=== PATIENT | female | born 1995 | race African-American/Black ===

== ENCOUNTER 2018-05-02 23:36 | Emergency (ER) | payer SELFPAY ==
[~2018-05-02] VITALS: Ht 160 cm; Wt 72.6 kg
--- NOTE | 2018-05-02 23:58 | PHYS DOC ---
Past Medical History Past Medical History: No Pertinent History Past Surgical History: No Surgical History Alcohol Use: Occasionally Drug Use: None Adult General Chief Complaint Chief Complaint: VAGINAL BLEEDING HPI HPI Patient is a 23 year old F who presents with vaginal bleeding in . Patient just found out she was this week. LMP mid march. She reports she started spotting earlier today, but the bleeding became heavier this evening. She denies heavy bleeding at this time. . She will see Dr. Cespedes for her OB care. Review of Systems Review of Systems Constitutional: Denies fever or chills [] GI: Denies abdominal pain, nausea, vomiting : Reports mild vaginal bleeding in . Denies dysuria or hematuria [] Musculoskeletal: Denies back pain or joint pain [] Integument: Denies rash or skin lesions [] Neurologic: Denies headache, focal weakness or sensory changes [] All other systems were reviewed and found to be within normal limits, except as documented in this note. Current Medications Current Medications Current Medications Medications (Trade) Dose Ordered Sig/Diane Start Time Stop Time Status Last Admin Dose Admin Metronidazole (Flagyl) 500 mg 1X ONCE 05/03/18 03:00 05/03/18 03:01 DC 05/03/18 03:17 500 MG Allergies Allergies Allergies Coded Allergies Type Severity Reaction Last Updated Verified latex Allergy Intermediate Rash. 11/18/15 Yes Physical Exam Physical Exam Constitutional: Well developed, well nourished, no acute distress, non-toxic appearance. [] HENT: Normocephalic, atraumatic Eyes: PERRLA, EOMI, conjunctiva normal, no discharge. [] Neck: Normal range of motion, no tenderness, supple, no stridor. [] Cardiovascular:Heart rate regular rhythm, no murmur [] Lungs & Thorax: Bilateral breath sounds clear to auscultation [] Abdomen: Bowel sounds normal, soft, no tenderness Skin: Warm, dry, no erythema, no rash. [] Neurologic: Alert and oriented X 3, normal motor function, normal sensory function, no focal deficits noted. [] Psychologic: Affect normal, judgement normal, mood normal. [] Physical exam by Dr. Trujillo: Constitutional: no acute distress, non-toxic appearance. [] Abdomen: soft, no tenderness Skin: Warm, dry, no erythema, no rash. [] PLATING TANK OPERATOR APPRENTICE: Keg Raiser RN, external genitalia normal, os mildly erythematous and nontender, no active bleeding noted, no adnexal tenderness Current Patient Data Vital Signs Vital Signs Date Time Temp Pulse Resp B/P (MAP) Pulse Ox O2 Delivery O2 Flow Rate FiO2 05/02/18 23:47 98.7 94 16 122/65 (84) 100 Room Air 98.7 Lab Values Laboratory Tests Test 05/03/18 00:10 05/03/18 00:20 05/03/18 00:25 White Blood Count 12.2 x10^3/uL (4.0-11.0) H Red Blood Count 4.46 x10^6/uL (3.50-5.40) Hemoglobin 12.2 g/dL (12.0-15.5) Hematocrit 36.8 % (36.0-47.0) Mean Corpuscular Volume 83 fL (79-100) Mean Corpuscular Hemoglobin 27 pg (25-35) Mean Corpuscular Hemoglobin Concent 33 g/dL (31-37) Red Cell Distribution Width 14.5 % (11.5-14.5) Platelet Count 300 x10^3/uL (140-400) Neutrophils (%) (Auto) 59 % (31-73) Lymphocytes (%) (Auto) 31 % (24-48) Monocytes (%) (Auto) 7 % (0-9) Eosinophils (%) (Auto) 2 % (0-3) Basophils (%) (Auto) 1 % (0-3) Neutrophils # (Auto) 7.2 x10^3uL (1.8-7.7) Lymphocytes # (Auto) 3.8 x10^3/uL (1.0-4.8) Monocytes # (Auto) 0.9 x10^3/uL (0.0-1.1) Eosinophils # (Auto) 0.2 x10^3/uL (0.0-0.7) Basophils # (Auto) 0.1 x10^3/uL (0.0-0.2) Maternal Serum HCG Beta Subunit 1955 mIU/mL (0-5) H Sodium Level 139 mmol/L (136-145) Potassium Level 3.4 mmol/L (3.5-5.1) L Chloride Level 102 mmol/L (98-107) Carbon Dioxide Level 28 mmol/L (21-32) Anion Gap 9 (6-14) Blood Urea Nitrogen 10 mg/dL (7-20) Creatinine 0.8 mg/dL (0.6-1.0) Estimated GFR (Cockcroft-Gault) 106.6 BUN/Creatinine Ratio 13 (6-20) Glucose Level 97 mg/dL (70-99) Calcium Level 9.2 mg/dL (8.5-10.1) Total Bilirubin 0.2 mg/dL (0.2-1.0) Aspartate Amino Transferase (AST) 10 U/L (15-37) L Alanine Aminotransferase (ALT) 14 U/L (14-59) Alkaline Phosphatase 89 U/L (46-116) Total Protein 8.0 g/dL (6.4-8.2) Albumin 4.0 g/dL (3.4-5.0) Albumin/Globulin Ratio 1.0 (1.0-1.7) Urine Collection Type Unknown Urine Color Yellow Urine Clarity Clear Urine pH 7.0 Urine Specific [place] <=1.005 Urine Protein Negative mg/dL (NEG-TRACE) Urine Glucose (UA) Negative mg/dL (NEG) Urine Ketones (Stick) Negative mg/dL (NEG) Urine Blood Large (NEG) Urine Nitrite Negative (NEG) Urine Bilirubin Negative (NEG) Urine Urobilinogen Dipstick 0.2 mg/dL (0.2 mg/dL) Urine Leukocyte Esterase Trace (NEG) Urine RBC >40 /HPF (0-2) Urine WBC 5-10 /HPF (0-4) Urine Squamous Epithelial Cells Mod /LPF Urine Bacteria Few /HPF (0-FEW) POC Urine HCG, Qualitative Hcg positive (Negative) Laboratory Tests 05/03/18 00:10 Laboratory Tests 05/03/18 00:10 Microbiology 05/03/18 Wet Prep - Final, Complete Microbiology 05/03/18 Wet Prep - Final, Complete EKG EKG [] Radiology/Procedures Radiology/Procedures PROCEDURE: OB <14 WKS W/TV OB ultrasound less than 14 weeks and transvaginal OB ultrasound HISTORY: and spotting Sonographic examination appearance is performed by transabdominal and endovaginal technique multiple static images were obtained OB ultrasound less than 14 weeks TRANSABDOMINAL: The uterus and ovaries are not well seen. Transvaginal OB ultrasound: The cervix appears normal. The left ovary appears normal with normal blood flow measures 2.7 x 3.0 x 2.1 centers. The right ovary appears normal with normal blood flow measures 2.2 x 2.1 x 2.9 cm. There is a cystic area within the endometrial the uterus which measures 6.1 mm and if a gestational sac would correspond to a 5 week 2 day gestational age and estimated date of confinement of 01/01/2019. The LP of 03/15/2018 corresponds with a 7 week 0 day gestational age and estimated date of confinement of 12/20/2018. There is a trace of free fluid in the pelvis. The ovaries appear normal with normal blood flow. IMPRESSION: Possible early gestational age . Recommend correlation with serial quantitative beta-hCG. If the continues a short-term follow-up ultrasound is necessary to document a viable intrauterine . Electronically signed by: Reji Weathers III, MD (05/03/2018 2:59 AM) [facility] Course & Med Decision Making Course & Med Decision Making Pertinent Labs and Imaging studies reviewed. (See chart for details) Dr. Trujillo assumes care. Awaiting HCG quant. US depending on level of quant. [place]: Signout received from Maia MUÑOZ for patient with reported vaginal bleeding. HCG near 2000. RH positive. Labs reviewed. Patient seen and evaluated by myself. Pelvic exam performed. Chlamydia/Gonorrhea cultures pending. Patient offered empiric antibiotics. Wet mount positive for clue cells. Empiric antibiotics initiated. OB US obtained with gestational sac noted at approximately 5 weeks 2 days. Patient stable for discharge with outpatient follow-up with [facility]. Discussed findings and plan with patient, who acknowledges understanding and agreement. Dragon Disclaimer Dragon Disclaimer This electronic medical record was generated, in whole or in part, using a voice recognition dictation system. Departure Departure Impression: Primary Impression: Threatened miscarriage in early Additional Impression: Bacterial vaginosis Disposition: 01 HOME, SELF-CARE Condition: STABLE Referrals: NO PCP (PCP) MONY BARTLETT Jr, MD Patient Instructions: Bacterial Vaginosis, [id number], Threatened Miscarriage , [id number] Scripts Metronidazole (FLAGYL) 500 Mg Tablet 500 MG PO BID, #14 TAB Prov: ROSA TRUJILLO DO 05/03/18 Attending Signature Attending Signature I have personally interviewed and examined the patient. All charts, labs, and imaging studies were reviewed. I agree with the PA/DEPUTY ATTORNEY GENERAL's findings, exam, and plan. Problem Qualifiers MAIA ARIZA APRN May 02, 2018 23:58 ROSA TRUJILLO DO May 03, 2018 02:55
[2018-05-03 00:23] LABS: BASO # 0.1 x10^3/uL (0.0-0.2); BASO % 1 % (0-3); EOS # 0.2 x10^3/uL (0.0-0.7); EOS % 2 % (0-3); HEMATOCRIT 36.8 % (36.0-47.0); HEMOGLOBIN 12.2 g/dL (12.0-15.5); LYMPH # 3.8 x10^3/uL (1.0-4.8); LYMPH % 31 % (24-48); MEAN CORPUSCULAR HEMOGLOBIN 27 pg (25-35); MEAN CORPUSCULAR HGB CONC 33 g/dL (31-37); MEAN CORPUSCULAR VOLUME 83 fL (79-100); MONO # 0.9 x10^3/uL (0.0-1.1); MONO % 7 % (0-9); NEUT # 7.2 x10^3uL (1.8-7.7); NEUT % 59 % (31-73); PLATELET COUNT 300 x10^3/uL (140-400); RED BLOOD COUNT 4.46 x10^6/uL (3.50-5.40); RED CELL DISTRIBUTION WIDTH 14.5 % (11.5-14.5); WHITE BLOOD COUNT 12.2 x10^3/uL (4.0-11.0)
[2018-05-03 00:35] LABS: CALCIUM 9.2 mg/dL (8.5-10.1); CREATININE 0.8 mg/dL (0.6-1.0); GFR 106.6; POTASSIUM 3.4 mmol/L (3.5-5.1)
[2018-05-03 00:37] LABS: BILIRUBIN,URINE NEGATIVE (NEG); CLARITY,URINE CLEAR; COLOR,URINE YELLOW; NITRITE,URINE NEGATIVE (NEG); PROTEIN,URINE NEGATIVE (NEG-TRACE); UROBILINOGEN,URINE 0.2 mg/dL (0.2 mg/dL)
[2018-05-03 00:41] LABS: TOTAL BILIRUBIN 0.2 mg/dL (0.2-1.0)
[2018-05-03 00:44] LABS: BACTERIA,URINE FEW /HPF (0-FEW); RBC,URINE >40 /HPF (0-2); SQUAMOUS EPITHELIAL CELL,UR MOD /LPF
[2018-05-03 02:44] VITALS: BP 100/56
[2018-05-03] MEDS ORDERED: metroNIDAZOLE 500 MG TABLET PO ONE (03:00)
[2018-05-03] MEDS ORDERED: METR500T PO (03:00)
--- NOTE | 2018-05-03 03:02 | RAD ---
OB ultrasound less than 14 weeks and transvaginal OB ultrasound HISTORY: and spotting Sonographic examination appearance is performed by transabdominal and endovaginal technique multiple static images were obtained OB ultrasound less than 14 weeks TRANSABDOMINAL: The uterus and ovaries are not well seen. Transvaginal OB ultrasound: The cervix appears normal. The left ovary appears normal with normal blood flow measures 2.7 x 3.0 x 2.1 centers. The right ovary appears normal with normal blood flow measures 2.2 x 2.1 x 2.9 cm. There is a cystic area within the endometrial the uterus which measures 6.1 mm and if a gestational sac would correspond to a 5 week 2 day gestational age and estimated date of confinement of 01/01/2019. The LP of 03/15/2018 corresponds with a 7 week 0 day gestational age and estimated date of confinement of 12/20/2018. There is a trace of free fluid in the pelvis. The ovaries appear normal with normal blood flow. IMPRESSION: Possible early gestational age . Recommend correlation with serial quantitative beta-hCG. If the continues a short-term follow-up ultrasound is necessary to document a viable intrauterine . Electronically signed by: Reji Weathers III, MD (05/03/2018 2:59 AM) [facility]
[2018-05-05 15:27] LABS: GC PROBE Negative (Negative)
== END 2018-05-03 03:30 | disposition home or self-care (01) ==
LOC: ER 23:36
DX: O20.0 Threatened abortion (principal); O23.591 Infection of other part of genital tract in pregnancy, first trimester; B96.89 Other specified bacterial agents as the cause of diseases classified elsewhere; Z91.040 Latex allergy status; Z3A.01 Less than 8 weeks gestation of pregnancy
CPT/HCPCS: 36415; 76801; 76817; 80053; 81001; 81025; 84702; 85025; 86901; 87086; 99285; Q0111; 87491; 87591